=== PATIENT | female | born 2000 | race Caucasian/White ===

== ENCOUNTER 2024-07-10 17:49 | Emergency (ER) | payer OTHER, SELFPAY ==
[2024-07-10 17:53] VITALS: BP 130/85; PULSE 113; O2SAT 98
[2024-07-10 18:00] VITALS: BP 121/77; BP 130/85; PULSE 103; PULSE 96; RESP 18; TEMP 36.9; O2SAT 100; BMI 18.8
[2024-07-10 18:30] VITALS: BP 115/68; PULSE 107; O2SAT 100
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
[2024-07-10 20:43] VITALS: BP 114/64; PULSE 100; RESP 18; O2SAT 100
[2024-12-21 16:07] LABS: Urine N gonorrhoeae NOT DETECTED
[2024-12-21 16:19] LABS: Urine Chlamydia NOT DETECTED
== END 2024-07-10 20:44 | disposition home or self-care (01) ==
PROVIDERS: Obstetrics & Gynecology; Emergency Provider Student in an Organized Health Care Education/Training Program
DX: S29.019A Strain of muscle and tendon of unspecified wall of thorax, initial encounter (principal); M54.2 Cervicalgia; V89.2XXA Person injured in unspecified motor-vehicle accident, traffic, initial encounter
CPT/HCPCS: 72070; 81025; 87491; 87591; 99283

== ENCOUNTER → 2024-12-30 09:55 | Outpatient (CLI) | payer OTHER, SELFPAY ==
[2024-12-30 11:04] LABS: Add Manual Diff / Slide Review NO; Basophils Absolute Auto 100 /uL (0-100); Basophils Percent Auto 1.2 % (0-2); Eosinophils Absolute Auto 100 /uL (0-450); Eosinophils Percent Auto 1.8 % (2-4); Hematocrit 37.7 % (36-46); Hemoglobin 13.6 g/dL (12.0-16.0); Lymphocytes Absolute Auto 1000 /uL (1100-4500); Lymphocytes Percent Auto 16.2 % (25-40); Mean Corpuscular HGB Conc 36.2 % (30-36); Mean Corpuscular Hemoglobin 31.7 PG (26-34); Mean Corpuscular Volume 87.8 fL (80-100); Monocytes Absolute Auto 400 /uL (0-900); Neutrophils Absolute Auto 4700 /uL (1500-7000); Neutrophils Percent Auto 74.8 % (50-75); Platelet Count 221 X10^3/uL (150-400); Red Blood Cell Count 4.29 X10^6/uL (4.0-5.2); Red Cell Distribution Width 12.7 % (11.6-14.8); White Blood Cell Count 6.3 X10^3/uL (4.5-11.0)
[2024-12-30 11:26] LABS: Natera Collection Specimen Collected
[2024-12-30 14:55] LABS: Hepatitis B Surface Antigen NEGATIVE s/c (NEGATIVE)
[2024-12-30 15:13] LABS: HIV 1 & 2 Ab/Ag 4th Gen Combo NEGATIVE (NEGATIVE); Hep C Virus Ab w/Reflex Quant NEGATIVE s/c (NEGATIVE)
[2024-12-31 01:07] LABS: Varicella IgG Antibody Reactive (Non Reactive)
[2024-12-31 05:41] LABS: RPR Screen Non Reactive (Non Reactive)
== END ==
PROVIDERS: PCP Nurse Practitioner Family; Referring Provider Obstetrics & Gynecology; Visit Provider Obstetrics & Gynecology
DX: Z34.81 Encounter for supervision of other normal pregnancy, first trimester (principal); Z3A.10 10 weeks gestation of pregnancy
CPT/HCPCS: 36415; 80055; 86787; 86803; 86850; 86900; 86901; 87086; 87389

== ENCOUNTER → 2025-04-12 11:43 | Outpatient (CLI) | payer OTHER, SELFPAY ==
[2025-04-12 14:10] LABS: Hematocrit 34.0 % (36-46); Hemoglobin 11.8 g/dL (12.0-16.0)
[2025-04-12 14:22] LABS: GTT (PREG) 1 Hour PP 50gm Dose 102 mg/dL (76-139)
== END ==
PROVIDERS: PCP Nurse Practitioner Family; Referring Provider Obstetrics & Gynecology; Visit Provider Obstetrics & Gynecology
DX: Z34.02 Encounter for supervision of normal first pregnancy, second trimester (principal)
CPT/HCPCS: 36415; 82950; 85014; 85018

== ENCOUNTER → 2025-05-23 07:02 | Outpatient (CLI) | payer OTHER, SELFPAY | LOC: CAR 07:03 | PROVIDERS: PCP Nurse Practitioner Family; Referring Provider Obstetrics & Gynecology; Visit Provider Obstetrics & Gynecology | DX: R00.2 Palpitations (principal) | CPT/HCPCS: 93242 ==

== ENCOUNTER → 2025-06-24 09:38 | Outpatient (CLI) | payer OTHER, SELFPAY ==
[2025-06-26 14:11] LABS: Strep Grp B PCR NEG for Grp B Strep
== END ==
PROVIDERS: PCP Nurse Practitioner Family; Visit Provider Obstetrics & Gynecology
DX: Z34.80 Encounter for supervision of other normal pregnancy, unspecified trimester (principal); Z3A.36 36 weeks gestation of pregnancy
CPT/HCPCS: 87653

== ENCOUNTER 2025-06-27 16:15 | Outpatient (CLI) | payer OTHER, SELFPAY ==
--- NOTE | 2025-06-27 17:26 | PM.OBTRLD ---
Visit Information Visit Information Date of evaluation: 06/27/25 On-call OB Provider: Susan Be Comments/Additional reasons for admission: decreased movement; cramping Vital Signs Vital Signs: reviewed in OBIX, within normal parameters [facility] Medical History (Updated 06/27/25 @ 17:27 by Susan Be DO) Hordeolum externum (stye) Family History (Updated 12/08/24 @ 14:06 by Mitzi Goodson RN) Mother Diabetes mellitus Grandmother Ovarian cancer Father Thyroid disease Social History marital status: number of children: 0 household members: spouse lives independently: Yes caregiver/support person: No housing: condominium ([facility]) pets and animals: Yes (dog) education level: college (some college) occupational status: unemployed current occupational exposures/hazards: No special tyrel needs: No travel history: recent (domestic only) seatbelt use: always water heater temp set < 120 deg: Yes working smoke detector in home: Yes fire extinguisher in home: Yes carbon monox detector in home: Yes firearms in home: No do you feel safe at home: Yes second hand exposure: No alcohol intake: former (rarely when not ) substance use type: does not use during the past year weight has: increased > 10 lbs well-balanced diet: about half the time daily servings fruits/ve-4 caffeine: Yes (minimal since becoming ) Type(s) of exercise: walking Evaluation Evaluation Baseline heart rate: 130 Variability: Moderate (6-25) monitor accelerations: Present Monitor Decelerations: Absent Category of Tracing: Reactive Comments: uterine irritability noted on toco Diagnosis, Plan/Disposition Final Diagnosis (1) Decreased movement affecting management of mother, antepartum: Status: Acute Plan/Disposition Plan: 24yo at 36+3wks presented to triage with decreased FM. Initially with minimal variability, however + accels. After longer monitoring, moderate variability with continued accels noted. Uterine irritability noted, UA sent. -RN reviewed return precautions with patient -follow-up in clinic as scheduled OB Disposition: home
[2025-06-27 17:47] LABS: Appearance Urine UA CLEAR; Bilirubin Urine UA NEGATIVE (NEGATIVE); Color Urine UA YELLOW; Glucose Urine UA NEGATIVE (Negative); Ketones Urine UA NEGATIVE (NEGATIVE); Leukocyte Esterase Urine UA NEGATIVE (NEGATIVE); Nitrite Urine UA NEGATIVE (Negative); Occult Blood Urine UA NEGATIVE (Negative); Protein Urine UA NEGATIVE (Negative); Specific Gravity Urine UA 1.020 (1.000-1.035); Urobilinogen Urine UA 0.2 E.U./dL (0.2)
[2025-06-27 18:00] LABS: pH Urine UA 6.5 (4.5-8.0)
[2025-06-27 18:02] LABS: Culture Indicated Urine Cult Not Indicated
== END 2025-06-27 17:43 | disposition home or self-care (01) ==
LOC: LABOR 16:23 → OB 06-28 07:20
PROVIDERS: PCP Nurse Practitioner Family; Referring Provider Obstetrics & Gynecology; Visit Provider Obstetrics & Gynecology
DX: O36.8130 Decreased fetal movements, third trimester, not applicable or unspecified (principal); Z3A.36 36 weeks gestation of pregnancy
CPT/HCPCS: 59025; 81001; G0378; G0379

== ENCOUNTER 2025-07-22 09:57 | Observation (INO) | payer OTHER, SELFPAY ==
--- NOTE | 2025-07-22 10:37 | DI.US.S_ITS ---
PROCEDURE: US OB BIOPHYSICAL PROFILE INDICATIONS: Non reactive NST. STAT OUTSIDE/PRIOR DATING DATA: Last menstrual period (LMP): 10/15/2024. LMP-based estimated date of delivery (HOLA): 07/22/2025 Working HOLA of 07/22/2025 TECHNIQUE: Real-time scanning was performed of the fetus, with image documentation and biometric measurements. Biophysical profile was also obtained. Endovaginal scanning: Not performed COMPARISON: Ob ultrasound 03/10/2025. FINDINGS: General: A single living intrauterine gestation is present. Presentation: Vertex. Placenta: Placental position is posterior , without previa. Amniotic fluid index: 10.2 cm, normal range is 5-24 cm. Single deepest vertical pocket is 4.3 cm. heart rate: 150 beats per minute. Maternal cervical canal: 2.8 cm long. Normal lower limit is 2.5 cm. biometrics: Biparietal diameter: 9.1 cm, 37 weeks, 0 day Head circumference: 33.9 cm, 39 weeks, 0 day Abdominal circumference: 35.0 cm, 38 weeks, 6 day Femur length: 7.1 cm, 36 weeks, 4 days Estimated weight and percentile: 3407 g, 30 second percentile Biophysical profile: Tone: 0 points. Movement: 2 points. Respiration: 2 points. Largest pocket of fluid: 2 points. IMPRESSION: Single intrauterine gestation in vertex presentation. Biophysical profile of 01/09. Approved by: Mercedez Pink M.D.,Ph.D. on 07/22/2025 at 18:04
== END 2025-07-22 12:40 | disposition home or self-care (01) ==
LOC: LABOR 10:00
PROVIDERS: Admitting Provider Obstetrics & Gynecology; PCP Nurse Practitioner Family; Referring Provider Obstetrics & Gynecology; Visit Provider Obstetrics & Gynecology
DX: O99.413 Diseases of the circulatory system complicating pregnancy, third trimester (principal); R00.2 Palpitations; Z3A.40 40 weeks gestation of pregnancy
CPT/HCPCS: 59025; 59050; 76819; G0378; G0379

== ENCOUNTER 2025-07-24 09:48 | Outpatient (CLI) | payer OTHER, SELFPAY ==
--- NOTE | 2025-07-24 10:04 | DI.US.S_ITS ---
PROCEDURE: US OB BIOPHYSICAL PROFILE INDICATIONS: previous bpp 01/09 OUTSIDE/PRIOR DATING DATA: Last menstrual period (LMP): 10/15/2024. LMP-based estimated date of delivery (HOLA): 07/22/2025. First dating scan (date and location): [facility], 03/10/2025. Estimated date of delivery (HOLA) from first dating scan: 07/22/2025. The calculations are made using the working HOLA of 07/22/2025. TECHNIQUE: Real-time scanning was performed of the fetus for biophysical profile, with image documentation. Color and pulse Doppler interrogation was also performed of the umbilical artery near its insertion into the placenta. Endovaginal scanning: Not applicable COMPARISON: [facility], , US OB BIOPHYSICAL PROFILE, 07/22/2025, 12:01. FINDINGS: General: A single living intrauterine gestation is present. Presentation: Vertex. Placenta: Placental position is posterior , without previa. Amniotic fluid index: 3.1 cm, normal range is 5-24 cm. Single deepest vertical pocket is 3.1 cm. heart rate: 140 beats per minute. Maternal cervical canal: 2.7 cm long. Normal lower limit is 2.5 cm. Clinically estimated gestational age: 40 weeks 2 days Estimated gestational age from initial scan: His. Biophysical profile: Tone: 2 points. Movement: 2 points. Respiration: 2 points. Largest pocket of fluid: 2 points. IMPRESSION: Single intrauterine gestation in vertex presentation. Biophysical profile of 03/11. We strive to produce accurate, complete, and clear reports of imaging services. To assist us in improving patient care, this report was composed using standard report templates and voice recognition software. Therefore, it may contain abnormal punctuation, insertions and/or omissions. Occasional wrong-word or sound-alike substitutions may occur. Though we review the report and make efforts to correct it, we do recommend that the report be read carefully in proper context to recognize any text inaccuracies. Dictated by: Eugenio Mckinnon M.D. on 07/24/2025 at 10:54 Approved by: Eugenio Mckinnon M.D. on 07/24/2025 at 10:57
--- NOTE | 2025-07-24 12:27 | P.TNLD_ITS ---
Visit Information Visit Information Date of evaluation: 07/24/25 Primary OB Provider: Anna Houston On-call OB Provider: Allison Salas Comments/Additional reasons for admission: 25yo at 40w2d here for repeat NST and BPP due to BPP 6/8 on 07/22 for decreased tone. Pt reports she is feeling her baby move regularly. No LOF or contractions. [facility] Medical History (Updated 06/27/25 @ 17:27 by Susan eB DO) Hordeolum externum (stye) Family History (Updated 12/08/24 @ 14:06 by Mitzi Goodson, KYLER) Mother Diabetes mellitus Grandmother Ovarian cancer Father Thyroid disease Social History marital status: number of children: 0 household members: spouse lives independently: Yes caregiver/support person: No housing: [facility] ([facility]) pets and animals: Yes (dog) education level: college (some college) occupational status: unemployed current occupational exposures/hazards: No special tyrel needs: No travel history: recent (domestic only) seatbelt use: always water heater temp set < 120 deg: Yes working smoke detector in home: Yes fire extinguisher in home: Yes carbon monox detector in home: Yes firearms in home: No do you feel safe at home: Yes second hand exposure: No alcohol intake: former (rarely when not ) substance use type: does not use during the past year weight has: increased > 10 lbs well-balanced diet: about half the time daily servings fruits/ve-4 caffeine: Yes (minimal since becoming ) Type(s) of exercise: walking Objective Imaging US - abdomen: My impression: YOSELIN repeated bedside was 10.5 Evaluation Evaluation Baseline heart rate: 135 Variability: Moderate (6-25) monitor accelerations: Present Monitor Decelerations: Absent Category of Tracing: Reactive Cervical dilation (cm): 1 Cervical effacement (%): 50 station: -4 Diagnosis, Plan/Disposition Plan/Disposition Plan: 25yo at 40w2d here for repeat NST and BPP due to BPP 6/8 on 07/22 for decreased tone. BPP read as 8/8, however YOSELIN noted to be 3. Repeat bedside YOSELIN 10.5. Pt stable for d/c home. Discussed IOL timing - pt hoping to be induced prior to 07/28. Especially in light of borderline YOSELIN this seems appropriate if possible. Will discuss with primary OB for timing. OB Disposition: home
== END 2025-07-24 11:40 | disposition home or self-care (01) ==
LOC: LABOR 09:54 → OB 07-25 10:36
PROVIDERS: PCP Nurse Practitioner Family; Referring Provider Obstetrics & Gynecology; Visit Provider Obstetrics & Gynecology
DX: O41.03X0 Oligohydramnios, third trimester, not applicable or unspecified (principal); Z3A.40 40 weeks gestation of pregnancy
CPT/HCPCS: 59025; 76815; 76819; G0378; G0379

== ENCOUNTER 2025-07-27 23:10 | Inpatient (IN) | payer OTHER, SELFPAY ==
--- NOTE | 2025-07-27 23:52 | DI.US.S_ITS ---
PROCEDURE: US OB BIOPHYSICAL PROFILE INDICATIONS: Minimal variability OUTSIDE/PRIOR DATING DATA: Working HOLA: 07/22/2025. TECHNIQUE: Real-time scanning was performed of the fetus for biophysical profile, with image documentation. Color and pulse Doppler interrogation was also performed of the umbilical artery near its insertion into the placenta. COMPARISON: [facility], , US OB >= 14 WEEKS FETUS, 03/10/2025, 7:36. [facility], US OB BIOPHYSICAL PROFILE, 07/22/2025, 12:01. [facility], US OB BIOPHYSICAL PROFILE, 07/24/2025, 10:29. FINDINGS: General: A single live intrauterine gestation is present. Presentation: Vertex. Placenta: Placental position is posterior/right , without previa. Amniotic fluid index: 6.3 cm, normal range is 5-24 cm. Single deepest vertical pocket is 3.4 cm. heart rate: 145 beats per minute. Maternal cervical canal: The cervix is not well seen. Clinically estimated gestational age: 40 weeks 6 days Biophysical profile: Tone: 0 points. Movement: 0 points. Respiration: 0 points. Largest pocket of fluid: 2 points. IMPRESSION: Abnormal biophysical profile, 2/8 points. Note: Concordant preliminary findings given by the multiple coil winder upon the completion of the examination to nursing staff. Note: No significant discrepancy from the preliminary report. We strive to produce accurate, complete, and clear reports of imaging services. To assist us in improving patient care, this report was composed using standard report templates and voice recognition software. Therefore, it may contain abnormal punctuation, insertions and/or omissions. Occasional wrong-word or sound-alike substitutions may occur. Though we review the report and make efforts to correct it, we do recommend that the report be read carefully in proper context to recognize any text inaccuracies. Dictated by: Ke Maynard M.D. on 07/28/2025 at 6:33 Approved by: Ke Maynard M.D. on 07/28/2025 at 6:36
[2025-07-28] MEDS: LACTATED RINGERS 1,000 ML 999 ML IV ×2 (00:47→04:03)
[2025-07-28 00:54] LABS: Add Manual Diff / Slide Review NO; Hematocrit 33.5 % (36-46); Hemoglobin 11.2 g/dL (12.0-16.0); Lymphocytes Absolute Auto 1700 /uL (1100-4500); Mean Corpuscular HGB Conc 33.5 % (30-36); Mean Corpuscular Hemoglobin 25.8 PG (26-34); Mean Corpuscular Volume 77.0 fL (80-100); Platelet Count 285 X10^3/uL (150-400)
[2025-07-28 01:33] VITALS: BP 125/81
--- NOTE | 2025-07-28 03:34 | PM.OBHP.IH.1 ---
OB HPI Date/Time Date of admission: 07/28/25 Date Patient Seen: 07/28/25 Time Patient Seen: 03:34 History of Present Condition Chief complaint: CONTRACTIONS HOLA Calculator Estimated Delivery Date Method Current WG Current Estimate 07/22/25 LMP (Certain) 40w 6d Other Estimates 07/22/25 Ultrasound #1 40w 6d : 3 Para: 0 Narrative: 25 yo presenting with painful regular contractions. She was recently seen in triage for similar sx and BPP was 01/09 with f/up 03/11 and discharged home. On arrival today contractions are regular but FHT with minimal variability and long stretches without any accelerations. has been otherwise uncomplicated. cfDNA with low risk male care: good care Dating criteria OB: LMP confirmed by 1st trimester US Ultrasounds: normal 1st trimester US Obstetrical complications: none Medical complications OB: none Indications Operative indications ( section): distress Preadmission Labs Last OB Lab Results: Blood Type A Positive Today, 00:20 Antibody Screen Negative Today, 00:20 Hct, (36-46) 33.5 % L Today, 00:20 Hgb, (12.0-16.0) 11.2 g/dL L Today, 00:20 Hep Bs Antigen, (NEGATIVE) Negative s/c 12/30/24, 10:26 Hepatitis C Antibody, (NEGATIVE) Negative s/c 12/30/24, 10:26 Rubella Antibody, (>15) 201.0 IU/mL 12/30/24, 10:26 VZV IgG Antibody, (Non Reactive) Reactive 12/30/24, 10:26 Glucose 1 Hr 50 gm, (76-139) 102 mg/dL 04/12/25, 13:02 Group B Strep (PCR) Neg for grp b strep 06/24/25, 09:38 Glucose Tolerance Testin hr (102) -: Chlamydia screen: negative, Gonorrhea screen: negative and Urine: negative Genetic Screens: Cell-free DNA: Normal (low risk male ) External Labs -: Urine: negative Prior (ies) Past Pregnancies Del. Date GA/Weeks Labor Lgth Wt Sex Route Outcome Anesthesia Place Delv Breastfeed Preg Comp Name 08/04/18 4-6 spontaneous 02/01/21 15 spontaneous Delivery Date: 08/04/18 Last Updated by: Mitzi Goodson RN passed spontaneously, no complications Delivery Date: 02/01/21 Last Updated by: Mitzi Goodson RN cause unclear Evaluation Evaluation Baseline heart rate: 148 Variability: Minimal (3-5) monitor accelerations: Absent Monitor Decelerations: Absent Contraction Frequency (minutes): 1 Uterine Contraction Intensity: Strong/Firm Category of Tracing: Non-reactive Status: Category ll Dilation (cm): 3 Effacement (%): 90 Dilation: 3-4 cm Effacement: >/=80% station: -2 [facility] Medical History (Updated 06/27/25 @ 17:27 by Susan Be DO) Hordeolum externum (stye) Family History (Updated 12/08/24 @ 14:06 by Mitzi Goodson RN) Mother Diabetes mellitus Grandmother Ovarian cancer Father Thyroid disease Social History marital status: number of children: 0 household members: spouse lives independently: Yes caregiver/support person: No housing: [facility]) pets and animals: Yes (dog) education level: college (some college) occupational status: unemployed current occupational exposures/hazards: No special tyrel needs: No travel history: recent (domestic only) seatbelt use: always water heater temp set < 120 deg: Yes working smoke detector in home: Yes fire extinguisher in home: Yes carbon monox detector in home: Yes firearms in home: No do you feel safe at home: Yes second hand exposure: No alcohol intake: former (rarely when not ) substance use type: does not use during the past year weight has: increased > 10 lbs well-balanced diet: about half the time daily servings fruits/ve-4 caffeine: Yes (minimal since becoming ) Type(s) of exercise: walking Meds Home Medications and Allergies Home Medications ?Medication ?Instructions ?Recorded ?Confirmed ?Type doxylamine succinate 25 mg tablet 25 mg PO BEDTIME #30 tabs 12/21/24 07/28/25 Rx Held on 07/28/25. Instructions: Change in level of care ondansetron HCl 4 mg tablet 4 mg PO Q8H PRN nausea and 12/21/24 07/28/25 Rx Held on 07/28/25. vomiting #20 tabs Instructions: Change in level of care vits,calcium 21-iron fum 1 tab PO DAILY #90 tabs 12/21/24 07/28/25 Rx 14 mg iron-folic acid 400 mcg tablet ( Complete) pyridoxine (vitamin B6) 25 mg 25 mg PO BID #60 tabs 12/21/24 07/28/25 Rx tablet Held on 07/28/25. Instructions: Change in level of care RSVPreF3 antigen-AS01E 0.5 ml IM ONCE #1 ea 05/27/25 07/28/25 Rx adjuvant(PF) 120 mcg/0.5 mL IM suspension, kit Held on 07/28/25. Instructions: Change in level of care Allergies Allergy/AdvReac Type Severity Reaction Status Date / Time No Known Drug Allergies Allergy Verified 07/28/25 01:21 Review of Systems Review of Systems Narrative: + movement + regular contractions - LOF OB Exam Vital signs Blood Pressure: 121/76 Pulse Rate: 92 Narrative Exam Narrative: GEN: uncomfortable appearing during contractions but able to breath through, comfortable between contractions Pulm: breathing comfortably on RA ABd: gravid MSK: laying in bed, moving all extremities neuro: non-focal Objective Labs 07/28/25 00:20 Labs: Laboratory Results - last 24 hr 07/28/25 00:20 WBC 12.0 H RBC 4.35 Hgb 11.2 L Hct 33.5 L MCV 77.0 L MCH 25.8 L MCHC 33.5 RDW 16.1 H Plt Count 285 Neut % (Auto) 78.8 H Lymph % (Auto) 13.8 L [place] % (Auto) 6.4 Eos % (Auto) 0.5 L Baso % (Auto) 0.5 Neut # (Auto) 9500 H Lymph # (Auto) 1700 [place] # (Auto) 800 Eos # (Auto) 100 Baso # (Auto) 100 Blood Type A Positive Antibody Screen Negative Assessment and Plan Assessment and Plan Assessment and Plan narrative: 25 yo presenting with painful regular contractions. On arrival FHT non-reassuring with minimal variability and no accelerations. BPP 2/8 on arrival. FHT wihtout improvemnts to position changes and 1.5L IVF. Enrique every 1-2 min on TOCO. Remote from delivery. Decision made to move to CS due to non-reassuring status/non-reassuring FHT remote from delivery # SIUP at term: - admit to LD - continuous monitoring - Anesthesia consult - CBC, TS - Vertex by BPP on arrival - GBS negative - 2g Ancef for surgical ppx counseling: It was explained to the patient that a section is a surgery to deliver the baby through an incision in the abdominal wall and uterus.? All procedures can be associated with risk and unforeseen complications, which can be immediate or delayed.? Risks and complications of section include, but are not limited to:? infection of the uterus, pelvic organs, or skin; inadvertent injury to internal organs such as the bowel, bladder, or possibly even the baby; blood loss, transfusion, and/or life-threatening hemorrhage requiring hysterectomy; blood clots in the legs, pelvic organs, or lungs; adverse reaction to medications or anesthesia during surgery; development of placenta accreta spectrum in a subsequent ; and increased risk of section in a subsequent . Time-Based Coding :: [TOTAL MINUTES] spent with patient and on the chart (including review of chart, obtaining history, exam, reviewing outside data, placing orders, documenting exam and treatment plan, and counseling patient) on [DATE].
[2025-07-28 03:51] VITALS: BP 121/76; PULSE 92
[2025-07-28] MEDS: CITRIC ACID/SODIUM CITRATE 15 ML SOLUTION 30 ML PO (04:00)
--- NOTE | 2025-07-28 04:49 | SUR.OPER ---
Supine on Padded OR bed, head on pillow, safety belt at thigh, arms secured on padded arm boards at <90 degrees abduction. Bump under right buttock. Legs uncrossed with pillow under knees, gel pad to heels, tape over blanket to lower legs.
--- NOTE | 2025-07-28 05:00 | SUR.OPER ---
C Section note: Viable baby boy born at 0454 placenta intact, sent with baby and mom to OB dad present at bedside
--- NOTE | 2025-07-28 05:36 | PM.OBCS.1 ---
Operative Date/Time/Diagnoses Date of procedure: 07/28/25 Time of procedure: 04:48 Pre-op diagnosis: Non-reassuring FHT Post-op diagnosis: same Procedure & Clinicians Procedure: Primary low transverse Same procedure(s) as scheduled: Yes Indications: Non-reassuring FHt remote from delivery Surgeon: Char Valverde Click Yes if Unassisted: No Resident In Diagnostic Radiology: Ashtyn Higuera Reason for Resident In Diagnostic Radiology: Resident In Diagnostic Radiology required for the safe, effective, and timely completion of this surgery. The resident assistant was necessary to retract upon entry into the abdomen and uterus. Assisted with delivery of the infant with fundal pressure. Assisted with closure with retraction, holding suture, and closure of the contralateral fascia. Anesthesia Type: Spinal Operative Notes Findings: Normal uterus, ovaries, and tubes Closure Type: primary Specimen(s): cord blood Intraoperative meds administered: Ketorolac and Pitocin Applied: Catheter Estimated Blood Loss (mL): 450 Procedure in detail: OPERATIVE COURSE: The patient was taken to the operating room where spinal anesthesia was placed. She was then prepared and draped in the normal sterile fashion in the dorsal supine position with a leftward tilt. Anesthesia was tested and found to be adequate. A Pfannensteil skin incision was then made with the scalpel and carried through to the underlying layer of fascia with the scalpel. The fascia was incised in the midline and the incision extended laterally with the Dennis scissors. The superior aspect of the fascial incision was then grasped with Royal clamps, elevated with the help of the director medical surgical, and the underlying rectus muscles dissected off bluntly and sharply where needed. Attention was then turned to the inferior aspect of the incision which, in a similar fashion, was grasped, tented up with Royal clamps, and the rectus muscle dissected off bluntly and sharply where needed. The rectus muscles were then in the midline, and the peritoneum was identified and entered bluntly. The peritoneal incision was then extended with good visualization of the bladder. Retraction was provided by the director medical surgical. The bladder blade was then inserted and the vesicouterine peritoneum identified well below intended hysterotomy site The lower uterine segment incised in a transverse fashion with the scalpel, with the director medical surgical providing suction. The uterine incision was then extended superolaterally by pulling superolaterally on both sides. Membranes were ruptured and fluid was clear. The bladder blade was removed the infant's head was flexed out of direct OA position and delivered atraumatically, with fundal pressure by the director medical surgical. The nose and mouth were suctioned with bulb suction and the cord was clamped and cut after a 60 second delay. The was handed off to the waiting nursing staff. Cord blood was collected. Time of delivery was 054. APGARS were 8 and 9 at one and five minutes respectively. The placenta was then delivered with gentle cord traction. The uterus was then exteriorized and cleared of all clots and debris. The uterine incision was repaired with 0 Vicryl in a running, locked fashion. A second layer of the same suture was used to obtain excellent hemostasis. The uterus was returned to the abdomen. The gutters were cleared of all clots. Hysterotomy was investigated and found to be hemostatic. The fascia was reapproximated with 0 Vicryl in a running fashion. The subcutaneous tissue was reapproximated with 3-0 vicryl. The skin was closed with 4-0 monocryl. The director medical surgical helped with retraction during closures. SPONGE AND NEEDLE COUNTS: Correct x3. DRESSING: Aquacel ANTICOAGULATION: SCDs applied prior to Surgery Preop antibiotics given (see MAR). The patient was taken to recovery room having tolerated procedure well. Complications: none [place] Baby 1: Delivery Date: 07/28/25 Delivery Time: 04:54 Infant Gender: Male Presentation: vertex Placental Delivery Description: Spontaneous Cord Vessel Description: 3 Vessels score (1 min): 8 score (5 min): 9 Post-operative Condition: stable Disposition: PACU Aftercare: routine postop
[2025-07-28 05:39] VITALS: BP 98/54; PULSE 98; RESP 21; TEMP 36.9; O2SAT 100
[2025-07-28 05:46] VITALS: BP 114/54; PULSE 98; RESP 21; O2SAT 98
[2025-07-28 05:50] VITALS: BP 109/56; PULSE 86; RESP 21; O2SAT 99
[2025-07-28] MEDS: LANOLIN OINT 7 GM 1 APPLIC TOP (08:07)
[2025-07-28] MEDS: PRENATAL VIT,CALC/IRON/FOLIC 1 TABLET 1 TAB PO (09:45)
[2025-07-28] MEDS: KETOROLAC 30 MG/ML VIAL IV ×2 (11:13→18:18)
[2025-07-28] MEDS: ACETAMINOPHEN 325 MG TABLET 650 MG PO ×2 (11:14→18:18)
[2025-07-28 16:55] LABS: Add Manual Diff / Slide Review NO; Hematocrit 26.7 % (36-46); Hemoglobin 9.2 g/dL (12.0-16.0); Lymphocytes Absolute Auto 1200 /uL (1100-4500); Mean Corpuscular HGB Conc 34.3 % (30-36); Mean Corpuscular Hemoglobin 26.6 PG (26-34); Mean Corpuscular Volume 77.4 fL (80-100); Platelet Count 216 X10^3/uL (150-400)
[2025-07-29] MEDS: KETOROLAC 30 MG/ML VIAL IV (00:14)
[2025-07-29] MEDS: ACETAMINOPHEN 325 MG TABLET 650 MG PO (04:19)
[2025-07-29] MEDS: IBUPROFEN 600 MG TABLET PO (05:56)
[2025-07-29] MEDS: IRON SUCROSE 200 MG in SODIUM CHLORIDE 0.9% 100 ML 220 MG IV (09:07)
--- NOTE | 2025-07-29 11:57 | P.DS_ITS ---
Discharge Providers Provider Date of admission: 07/27/25 23:10 Discharge Date: 07/29/25 Primary care physician: BENJAMIN Melissa Consults: 07/27/25 23:51 Consult to Anesthesiology Urgent Comment: Consulting Provider: Anesthesiologist Reason for consultation: Epidural 07/28/25 05:42 Consult to Production Potter Routine Comment: Discharge provider: Anna Houston MD Summary Hospital Course Date Patient Seen: 07/29/25 Time Patient Seen: 08:00 Diagnoses: late-term , non-reassuring surveillance remote from delivery Hospital Course: 25yo presented to facility late evening 07/27/25 with c/o painful contractions. monitoring at that time was notable for minimal variability without accelerations, BPP 2/8 and decision made to proceed to emergent secondary to non-reassuring surveillance remote from delivery. Patient underwent procedure without complication, delivery of liveborn male with APGARs 8/9. Patient had a subsequently uncomplicated and postoperative course. Intraoperative QBL 450cc, postoperative h/h 9.2/26.7 and pt received IV venofer for iron supplementation on PPD1/POD1. Patient was discharged to home on PPD/POD1 meeting all discharge milestones, , 1wk incision check in office Peripartum Data Infant Delivery Method: Section complications: none 1: Gender: Male Disposition of : home Status at Discharge Cognitive/behavioral status at discharge: oriented Functional status at discharge: independent ambulation Overall status at discharge: patient is back to baseline Time Spent with Patient Time attestation: Total time spent providing and/or coordinating discharge services: Objective Labs 07/28/25 16:37 Labs: Laboratory Results - last 24 hr 07/28/25 16:37 WBC 9.6 RBC 3.45 L Hgb 9.2 L Hct 26.7 L MCV 77.4 L MCH 26.6 MCHC 34.3 RDW 16.0 H Plt Count 216 Neut % (Auto) 76.8 H Lymph % (Auto) 12.9 L [place] % (Auto) 9.2 Eos % (Auto) 0.9 L Baso % (Auto) 0.2 Neut # (Auto) 7400 H Lymph # (Auto) 1200 [place] # (Auto) 900 Eos # (Auto) 100 Baso # (Auto) 0 Exam Vital Signs (past 8 hours): Oxygen Delivery Method Room Air maternal VSS/afebrile, reviewed in OBIX Const General: cooperative and comfortable Nutritional Appearance: average body habitus Orientation: alert, awake and oriented x3 Limitations: mental status not altered HENMT Head: normal to inspection Resp Effort & Inspection: normal respiratory effort and able to speak in complete sentences Cardio Pulses: normal peripheral pulses GI Palpation: soft Other: incision c/d/i, old drainage without extension as marked Other: deferred Skin General: no rashes or lesions noted Neuro General: patient alert, patient awake and patient oriented x3 Extrem General: normal to inspection Psych Mental Status: mental status grossly normal Judgment: judgment good Discharge Plan Discharge Plan Patient Disposition: Home Provider Discharge Comment: No heavy lifting more than 10lbs (baby + carrier) for 6 weeks. Do not submerge your incision under water for 2 weeks. You may shower as normally. Nothing in the vagina for 6 weeks - no tampons, intercourse, swimming in fresh water/pools/hot tubs. Tub baths are okay after the first 2 weeks if the tub is cleaned well first. Discharge orders & Medications Prescriptions: New acetaminophen 325 mg Tablet 650 mg PO Q6H Qty: 30 0RF ibuprofen 600 mg Tablet 600 mg PO Q6H Qty: 30 0RF oxycodone 5 mg Tablet 5 mg PO Q4H PRN (Reason: Pain, Moderate (4-6)) Qty: 12 0RF senna 8.6 mg capsule 8.6 mg PO BEDTIME PRN (Reason: constipation) Qty: 14 0RF Continued Complete 14 mg iron- 400 mcg tablet 1 tab PO DAILY Qty: 90 3RF Discontinued pyridoxine (vitamin B6) 25 mg tablet 25 mg PO BID Qty: 60 2RF doxylamine succinate 25 mg tablet 25 mg PO BEDTIME Qty: 30 2RF ondansetron HCl 4 mg tablet 4 mg PO Q8H PRN (Reason: nausea and vomiting) Qty: 20 0RF Adacel(Tdap Adolesn/Adult)(PF) 2 Lf-(2.5-5-3-5 mcg)-5Lf/0.5 mL suspension 0.5 ml IM ONCE Qty: 0.5 0RF flu vac ts 2024-(6mos up)-PF 45 mcg (15 mcg x 3)/0.5 mL syringe 0.5 ml IM ONCE Qty: 0.5 0RF RSVPreF3 antigen-AS01E (PF) 120 mcg/0.5 mL suspension for reconstitution 0.5 ml IM ONCE Qty: 1 0RF Follow up/Referrals: Evelia Salas ARNP [Primary Care Provider, Nursing] Anna Houston MD [Physician, SENIOR RECRUITMENT CONSULTANT] - 08/05/25 11:15 am Referral Note: Dr Houston followup appointment on 08/05/25 @ 11:15am for incision check and on 09/02/25 @11:00am post visit. Please arrive 15 minutes prior to your scheduled appointment time. Diet/Activity/Treatments Diet: Diet as Tolerated and Regular Skin/Wound/Dressing Care Report to your healthcare provider any signs of infection, such as:: chills, fever, increased pain, unusual drainage and unusual redness Visit Report/Discharge Packet Stand Alone Forms: [employer], Patient Portal/API, Stroke Signs & Symptoms, Influenza Vaccine Info, Notice of Privacy Practices, Inpatient vs Outpatient, Pneumococcal Vaccine Info, Pt. Rights & Responsibilities Discharge Data Primary Care Provider: Evelia Salas
[2025-07-29 16:26] VITALS: BP 109/56; PULSE 86; RESP 21; TEMP 36.9
== END 2025-07-29 16:28 | disposition home or self-care (01) | DRG 788 ==
PROVIDERS: Obstetrics & Gynecology; Admitting Provider Family Medicine; PCP Nurse Practitioner Family; Referring Provider Family Medicine; Visit Provider Family Medicine
PROC: 10D00Z1 Extraction of Products of Conception, Low, Open Approach (ICD-10-PCS; CPT 59514; principal; 2025-07-28 04:30)
DX: O76 Abnormality in fetal heart rate and rhythm complicating labor and delivery (principal); Z3A.40 40 weeks gestation of pregnancy; Z37.0 Single live birth; Z67.10 Type A blood, Rh positive
CPT/HCPCS: 59025; 59050; 76819; 85025; 86850; 86900; 86901; G0379; J0689; J1756; J1885; J2274; J2405; J3010; J7050; J7120